=== PATIENT | male | born 1970 | race African-American/Black ===

== ENCOUNTER 2018-05-24 09:34 | Emergency (ER) | payer MEDICARE, MEDICAID ==
--- NOTE | 2018-05-24 09:55 | ER Document Report ---
ED Medical Screen (RME) - General Chief Complaint: Leg Pain Stated Complaint: SKIN ISSUE Time Seen by Provider: 05/24/18 09:46 Mode of Arrival: Ambulatory Information source: Patient, [facility] Records Notes: 47-year-old male with hypertension, diabetes presents with blistering to his lower extremities. I have greeted and performed a rapid initial assessment of this patient. A comprehensive ED assessment and evaluation of the patient, analysis of test results and completion of medical decision making process we will be contacted by additional ED providers. PHYSICAL EXAMINATION: GENERAL: Well-appearing, well-nourished and in no acute distress. HEAD: Atraumatic, normocephalic. LUNGS: No respiratory distress SKIN: Blistering left lower extremity. TRAVEL OUTSIDE OF THE [place] IN LAST 30 DAYS: No - HPI Onset: Other Onset/Duration: Gradual, Persistent Quality of pain: Achy Associated Symptoms: denies: Chills, Fever, Nausea, Vomiting Exacerbated by: Denies Relieved by: Denies Similar symptoms previously: Yes Recently seen / treated by doctor: Yes - Related Data Smoking: Non-smoker Frequency of alcohol use: None Drug Abuse: None Allergies/Adverse Reactions: No Known Allergies Allergy (Verified 05/24/18 09:40) Past Medical History - Past Medical History Cardiac Medical History: Reports: Hx Hypertension Endocrine Medical History: Reports: Hx Diabetes Mellitus Type 1 Physical Exam - Vital signs Vitals: Temp Pulse Resp BP Pulse Ox 98.3 F 86 18 173/106 H 97 05/24/18 09:41 05/24/18 09:41 05/24/18 09:41 05/24/18 09:41 05/24/18 09:41 Course - Vital Signs Vital signs: Temp Pulse Resp BP Pulse Ox 98.3 F 86 18 173/106 H 97 05/24/18 09:41 05/24/18 09:41 05/24/18 09:41 05/24/18 09:41 05/24/18 09:41 Doctor's Discharge - Discharge Referrals: LEX CHEN MD [Primary Care Provider] - Follow up as needed
--- NOTE | 2018-05-24 10:29 | ER Document Report ---
ED General - General Chief Complaint: Leg Pain Stated Complaint: SKIN ISSUE Time Seen by Provider: 05/24/18 09:46 Mode of Arrival: Ambulatory Information source: Patient TRAVEL OUTSIDE OF THE [place] IN LAST 30 DAYS: No - HPI Onset: Other - 2 weeks ago Onset/Duration: Gradual Quality of pain: No pain Severity: None Pain Level: Denies Associated symptoms: None Exacerbated by: Denies Relieved by: Denies Similar symptoms previously: Yes Recently seen / treated by doctor: Yes - Related Data Allergies/Adverse Reactions: No Known Allergies Allergy (Verified 05/24/18 09:40) Past Medical History - General Information source: Patient, [facility] Records - Social History Smoking Status: Never Smoker Frequency of alcohol use: None Drug Abuse: None Family History: Hypertension Patient has suicidal ideation: No Patient has homicidal ideation: No - Past Medical History Cardiac Medical History: Reports: Hx Hypertension Endocrine Medical History: Reports: Hx Diabetes Mellitus Type 1 Renal/ Medical History: Denies: Hx Peritoneal Dialysis Review of Systems - Review of Systems Constitutional: No symptoms reported EENT: No symptoms reported Cardiovascular: No symptoms reported Respiratory: No symptoms reported Gastrointestinal: No symptoms reported Genitourinary: No symptoms reported Male Genitourinary: No symptoms reported Musculoskeletal: No symptoms reported Skin: Other - ulcers Neurological/Psychological: No symptoms reported -: Yes All other systems reviewed and negative Physical Exam - Vital signs Vitals: Temp Pulse Resp BP Pulse Ox 98.3 F 86 18 173/106 H 97 05/24/18 09:41 05/24/18 09:41 05/24/18 09:41 05/24/18 09:41 05/24/18 09:41 - Notes Notes: PHYSICAL EXAMINATION: GENERAL: Well-appearing, well-nourished and in no acute distress. HEAD: Atraumatic, normocephalic. EYES: Pupils equal round and reactive to light, extraocular movements intact, sclera anicteric, conjunctiva are normal. ENT: Nares patent, oropharynx clear without exudates. Moist mucous membranes. NECK: Normal range of motion, supple without lymphadenopathy LUNGS: Breath sounds clear to auscultation bilaterally and equal. No wheezes rales or rhonchi. HEART: Regular rate and rhythm without murmurs ABDOMEN: Obese, Soft, nontender, nondistended abdomen. No guarding, no rebound. No masses appreciated. Musculoskeletal: Normal range of motion, no pitting or edema. No cyanosis. No calf tenderness to palpation. NEUROLOGICAL: Cranial nerves grossly intact. Normal speech, normal gait. Normal sensory, motor exams PSYCH: Normal mood, normal affect. SKIN: Warm, Dry. Ulcerations noted to the LLE and RLE. Ulcerations are clean without signs of infection. No cellulitis. Quarter size bullus to the anterior LLE. Course - Re-evaluation Re-evalutation: 05/24/18 10:33 Patient presents to the emergency department with complaints of bilateral lower extremity ulcerations that have been present for the last couple of months. Patient states that he has followed up with his primary care physician. He states that he was prescribed an ointment to apply to these areas. He states that he has been using it as directed. He states that the ulcerations have been improving. Patient is concerned because there is still present. He feels that he needs an antibiotic. He denies purulent drainage, erythema, warmth. Patient also states that he has a fluid-filled bullae to the left lower extremity. Approximately quarter size. He states that it has been there for over 2 weeks. He states that his primary care physician told him not to rupture the bullae but to let it rupture on its own. Patient denies any calf pain. Patient denies any numbness, tingling, weakness in the lower extremities. Patient is able to ambulate. Patient denies history of DM. Was told by his PCP that he is pre-diabetic. Will obtain blood sugar in the ED. Patient does have a Hx of HTN and is on medication for this. Denies heart history. Denies chest pain or shortness of breath. 05/24/18 11:17 Labs obtained. Blood sugar is within normal limits. Creatinine is within normal limits. I will discharge the patient home on an antibiotic. I instructed the patient to follow-up with his primary care physician this week, to take the medication prescribed as directed, and to return to the emergency department if he begins experiencing any shortness of breath, chest pain, calf pain. Patient is agreeable with plan of care. - Vital Signs Vital signs: Temp Pulse Resp BP Pulse Ox 97.6 F 71 18 166/98 H 97 05/24/18 11:04 05/24/18 11:04 05/24/18 11:04 05/24/18 11:04 05/24/18 11:04 - Laboratory Result Diagrams: 05/24/18 10:02 Laboratory results interpreted by me: 05/24/18 10:02 Carbon Dioxide 31 H Discharge - Discharge Clinical Impression: Ulceration Condition: Good Disposition: HOME, SELF-CARE Instructions: Foot or Leg Ulcer ([facility]) Prescriptions: Doxycycline Hyclate 100 mg PO BID #14 capsule Referrals: LEX CHEN MD [Primary Care Provider] - Follow up as needed
[2018-05-24 10:46] LABS: ANION GAP 9 (5-19); BLOOD UREA NITROGEN 10 mg/dL (7-20); CALCIUM 9.3 mg/dL (8.4-10.2); CARBON DIOXIDE 31 mmol/L (22-30); CHLORIDE 101 mmol/L (98-107); GLUCOSE 105 mg/dL (75-110)
[2018-05-24 11:07] VITALS: BP 166/98
== END 2018-05-24 11:52 | disposition home or self-care (01) ==
LOC: ER 09:34
DX: E10.622 Type 1 diabetes mellitus with other skin ulcer (principal); M79.605 Pain in left leg; M79.604 Pain in right leg; I10 Essential (primary) hypertension
CPT/HCPCS: 36415; 80048; 82962; 99283

== ENCOUNTER 2018-07-23 00:21 | Emergency (ER) | payer MEDICARE, MEDICAID ==
[2018-07-23] MEDS ORDERED: MORPHINE SULFATE IR 15 MG TABLET PO ONE (01:21)
[2018-07-23] MEDS ORDERED: IBUPROFEN 600 MG TABLET PO ONE (01:21)
[2018-07-23] MEDS ORDERED: ACETAMINOPHEN 325 MG TABLET PO ONE (01:21)
--- NOTE | 2018-07-23 01:29 | ER Document Report ---
ED General - General Chief Complaint: Leg Pain Stated Complaint: LEG PAIN Time Seen by Provider: 07/23/18 01:10 Notes: Patient is a 47-year-old male with a past medical history of morbid obesity and hypertension as well as chronic stasis dermatitis who presents with increasing pain to his left lower extremity wound. Patient states for the past 2-3 months he has had a wound over the distal left lower extremity that has been managed by his primary care doctor and wound management. He states for the past 48 hours he has had progressively worsening pain to the area with associated white drainage from the area. He denies associated fever or constitutional symptoms. Touching the area worsens his pain which he does describes a throbbing, aching , constant, severe pain. He has not tried anything for improvement of the pain. He has not seen his general doctor regarding today's concerns. No history of similar symptoms in the past TRAVEL OUTSIDE OF THE [place] IN LAST 30 DAYS: No - Related Data Allergies/Adverse Reactions: No Known Allergies Allergy (Verified 07/23/18 00:24) Past Medical History - General Information source: Patient - Social History Smoking Status: Never Smoker Frequency of alcohol use: None Drug Abuse: None Lives with: Family Family History: Hypertension - Past Medical History Cardiac Medical History: Reports: Hx Hypertension Endocrine Medical History: Reports: Hx Diabetes Mellitus Type 1 Renal/ Medical History: Denies: Hx Peritoneal Dialysis Review of Systems - Review of Systems Notes: Constitutional: Negative for fever. HENT: Negative for sore throat. Eyes: Negative for visual changes. Cardiovascular: Negative for chest pain. Respiratory: Negative for shortness of breath. Gastrointestinal: Negative for abdominal pain, vomiting or diarrhea. Genitourinary: Negative for dysuria. Musculoskeletal: Negative for back pain. Skin: Positive for stasis dermatitis bilaterally, positive for infection of a chronic wound to the left lower extremity Neurological: Negative for headaches, weakness or numbness. 10 point ROS negative except as marked above and in HPI. Physical Exam - Vital signs Vitals: Temp Pulse Resp BP Pulse Ox 98.1 F 95 20 167/103 H 94 07/23/18 00:24 07/23/18 00:24 07/23/18 00:24 07/23/18 00:24 07/23/18 00:24 Interpretation: Hypertensive Notes: PHYSICAL EXAMINATION: GENERAL: Morbidly obese male, appears moderately uncomfortable but in no acute distress HEAD: Atraumatic, normocephalic. EYES: Pupils equal round and reactive to light, extraocular movements intact, sclera anicteric, conjunctiva are normal. ENT: nares patent, oropharynx clear without exudates. Moist mucous membranes. NECK: Normal range of motion, supple without lymphadenopathy LUNGS: Breath sounds clear to auscultation bilaterally and equal. No wheezes rales or rhonchi. HEART: Regular rate and rhythm without murmurs ABDOMEN: Soft, morbidly obese abdomen, nontender, normoactive bowel sounds. No guarding, no rebound. No masses appreciated. EXTREMITIES: Normal range of motion, no pitting or edema. No cyanosis. NEUROLOGICAL: No focal neurological deficits. Moves all extremities spontaneously and on command. PSYCH: Normal mood, normal affect. SKIN: Warm, Dry, normal turgor, there is an approximately 10 x 12 cm area on the distal left lower extremity overlying the lower region of the arguelles that appears to be a chronic wound that has become acutely infected with associated purulent drainage. No significant surrounding erythema. Course - Re-evaluation Re-evalutation: 07/23/18 01:22 Patient presents with approximately a 12 x 10 cm ulcerative wound on the distal lower aspect of the left lower extremity secondary to stasis dermatitis. This does appear to be acutely infected. The patient appears to be in significant discomfort. No fever or constitutional symptoms. Vitals within normal limit. Patient has a long-standing history of chronic wounds to the bilateral lower extremities although has been working with you management regarding this wound on the left lower cavity which she states has acutely become more painful with increasing purulent discharge over the last 48-72 hours. Will obtain basic laboratories, plan for likely outpatient management with oral antibiotics and ongoing follow-up with wound management. I have had a prolonged conversation with the patient about his weight which is currently 209 kg with a BMI of 79. We did review the pathology of stasis dermatitis and the need for emergent weight loss. Patient states that he understands. 07/23/18 02:10 Labs are probably unremarkable. Patient will be started on cephalexin and trimethoprim sulfamethoxazole. The wound has been cleaned and dressed. I have advised the patient that he will need to follow-up with wound management urgently for continued monitoring of this wound. We have reviewed signs and symptoms that would indicate that he is progressing toward sepsis or worsening of the wound. At this time will discharge with return precautions and follow- up recommendations. Verbal discharge instructions given a the bedside and opportunity for questions given. Medication warnings reviewed. Patient is in agreement with this plan and has verbalized understanding of return precautions and the need for primary care follow-up in the next 24-72 hours. - Vital Signs Vital signs: Temp Pulse Resp BP Pulse Ox 98.1 F 95 20 167/103 H 94 07/23/18 00:24 07/23/18 00:24 07/23/18 00:24 07/23/18 00:24 07/23/18 00:24 - Laboratory Result Diagrams: 07/23/18 01:36 07/23/18 01:36 Laboratory results interpreted by me: 07/23/18 07/23/18 01:36 01:36 RDW 14.3 H Carbon Dioxide 33 H Discharge - Discharge Clinical Impression: Wound infection, Morbid obesity Wound of left lower extremity Qualifiers: Encounter type: initial encounter Qualified Code(s): S81.802A - Unspecified open wound, left lower leg, initial encounter Stasis dermatitis Qualifiers: Laterality: bilateral Qualified Code(s): I87.2 - Venous insufficiency (chronic ) (peripheral) Condition: Good Disposition: HOME, SELF-CARE Additional Instructions: You were seen today for an infection of a chronic wound on your left lower extremity. Your labs and vitals are normal today. Please take antibiotics as prescribed. You need to follow-up with wound management on Tuesday for reassessment of the wound. Please return to the emergency department immediately if you develop a fever of greater than 101 F, increasing pain, spreading redness around the area of the wound, body aches, vomiting, or any other symptoms that are concerning to you. For your pain: Take ibuprofen 600 mg and acetaminophen 1000 mg every 6 hours together as needed for pain. You may use tramadol for pain not controlled by the above regimen. As we discussed today, please strongly consider losing weight. Your obesity will result in a shorter life and serious diagnoses including heart attacks, stroke, diabetes, high blood pressure, high cholesterol, kidney failure, and will also result in a much less enjoyable life due to these chronic conditions. Focus on gradual life style changes including removing sugared beverages and processed foods from your diet and at least 30 minutes of moderate activity daily. Try to target 4-5lbs of weight loss per month. Prescriptions: Tramadol HCl [Ultram] 50 mg PO Q6HP PRN #10 tablet PRN Reason: Cephalexin Monohydrate [Keflex 500 mg Capsule] 500 mg PO Q6H 10 Days capsule Sulfamethoxazole/Trimethoprim [Bactrim Ds Tablet] 1 tab PO BID #20 tablet Referrals: SHAWN LANGE, LABORATORY DEVELOPMENT TECHNICIAN [Primary Care Provider] - 07/24/18
[2018-07-23 01:45] LABS: ABSOLUTE BASOPHILS # (AUTO) 0.1 10^3/uL (0.0-0.2); ABSOLUTE EOSINOPHILS # (AUTO) 0.3 10^3/uL (0.0-0.6); ABSOLUTE LYMPHOCYTES (AUTO) 1.3 10^3/uL (0.5-4.7); ABSOLUTE MONOCYTES (AUTO) 0.7 10^3/uL (0.1-1.4); ABSOLUTE NEUT (AUTO) 5.1 10^3/uL (1.7-8.2); EOSINOPHILS % (AUTO) 3.4 % (0-6); HEMATOCRIT 41.2 % (37.9-51.0); HEMOGLOBIN 13.6 g/dL (13.5-17.0); LYMPHOCYTES % (AUTO) 16.9 % (13-45); MEAN CORPUSCULAR HEMOGLOBIN 28.3 pg (27.0-33.4); MEAN CORPUSCULAR HGB CONC 33.1 g/dL (32.0-36.0); MEAN CORPUSCULAR VOLUME 86 fl (80-97); MONOCYTES % (AUTO) 9.5 % (3-13); PLATELET COUNT 340 10^3/uL (150-450); RED BLOOD COUNT 4.82 10^6/uL (4.35-5.55); RED CELL DISTRIBUTION WIDTH 14.3 % (11.5-14.0); SEGMENTED NEUTROPHILS % (AUTO) 69.2 % (42-78); TOTAL CELLS COUNTED % (AUTO) 100 %; WHITE BLOOD COUNT 7.4 10^3/uL (4.0-10.5)
[2018-07-23 02:05] LABS: ANION GAP 10 (5-19); BLOOD UREA NITROGEN 15 mg/dL (7-20); CARBON DIOXIDE 33 mmol/L (22-30); CHLORIDE 100 mmol/L (98-107); GLUCOSE 110 mg/dL (75-110); POTASSIUM 3.7 mmol/L (3.6-5.0); SODIUM 143.3 mmol/L (137-145)
[2018-07-23] MEDS ORDERED: CEPHALEXIN 500 MG CAPSULE PO ONE (02:07)
[2018-07-23] MEDS ORDERED: SULFAMETHOXAZOLE/TRIMETHOPRIM 800-160 MG TABLET PO ONE (02:07)
[2018-07-23 02:37] VITALS: BP 197/106
== END 2018-07-23 02:40 | disposition home or self-care (01) ==
LOC: ER 00:21
DX: I87.2 Venous insufficiency (chronic) (peripheral) (principal); S81.802A Unspecified open wound, left lower leg, initial encounter; M79.605 Pain in left leg; E66.01 Morbid (severe) obesity due to excess calories; X58.XXXA Exposure to other specified factors, initial encounter; I10 Essential (primary) hypertension
CPT/HCPCS: 99283; 36415; 83605; 85025; 80048; A9270 ×5

== ENCOUNTER → 2018-07-31 | Outpatient (CLI) | payer MEDICARE, MEDICAID ==
--- NOTE | 2018-07-31 16:55 | XCELERA REPORT ---
[address] [address] Lower Extremity Venous Evaluation Procedure: A bilateral duplex scan of the lower extremity veins was performed. The evaluation included responses to compression and other maneuvers with patient in the supine and standing positions to assess venous insufficiency. Right Sided Venous Evaluation Deep venous system evaluatiion shows patent veins with no obstruction or significant reflux identified. Sapheno Femoral junction: no reflux. Femoral vein reflux: no reflux. Greater Saphenous vein, Proximal thigh: reflux: no reflux. Greater Saphenous vein, Distal thigh: reflux: no reflux. Greater Saphenous vein, Proximal below knee: reflux: no reflux. No significant Perforators identified. Left Sided Venous Evaluation Deep venous system evaluatiion shows patent veins with no obstruction or significant reflux identified. Sapheno Femoral junction: no reflux. Femoral vein reflux: no reflux. Greater Saphenous vein, Proximal thigh: reflux: no reflux. Greater Saphenous vein, Distal thigh: reflux: no reflux. Greater Saphenous vein, Proximal below knee: reflux: no reflux. No significant Perforators identified. Interpretation Summary No duplex evidence of DVT or obstruction in the bilateral lower extremities. No deep or superficial reflux noted. Name: BRIONNA JIMENEZ Age: 47 yrs Gender: Male : 1970 Patient Status: Outpatient Patient Location: Study Date: 07/31/2018 03:09 PM Reason For Study: ULCER Ordering Physician: SHAWN LANGE Performed By: Terry Nix : SHAWN LANGE > Jose Guadalupe Aguilar
--- NOTE | 2018-07-31 17:01 | XCELERA REPORT ---
[address] [address] Lower Extremity Arterial Evaluation Name: BRIONNA JIMENEZ Age: 47 yrs Gender: Male : 1970 Patient Status: Outpatient Patient Location: Study Date: 07/31/2018 02:26 PM Procedure: A color flow and duplex scan of the lower extremity arteries was performed bilaterally with velocity and waveform anaylsis. Reason For Study: ULCER Ordering Physician: SHAWN LANGE Performed By: Terry Nix Measurements and Calculations Right Left HEALTH LEAD PSV 140.6 152.8 cm/sec Prox PFA PSV 120.8 64.5 cm/sec Prox Pop A PSV 106.2 173.8 cm/sec Dist LYLY PSV 80.5 115.9 cm/sec Mid FINANCE LEAD PSV 132.7 cm/sec Dist FINANCE LEAD PSV 139.7 cm/sec Tej Pedis PSV -67.8 -71.0 cm/sec Right Side Arterial Evaluation Normal velocity and triphasic waveforms noted from the Common Femoral artery to the infrageniculate vessels. Dorsalis Pedis Shows PSV over 2 x Anterior Tibial indicating 50-99% stenosis. 50-99% stenosis at the Dorsal pedal artery. Ankle Brachial index was not done, patient unable to tolerate. Left Side Arterial Evaluation Normal velocity and triphasic waveforms noted from the Common Femoral artery to the infrageniculate vessels. Dorsalis Pedis Shows PSV less than 2 x Anterior Tibial indicating < 50% stenosis. <50 % stenosis at the Dorsal pedal artery. Ankle Brachial index was not done, patient unable to tolerate. Interpretation Summary Stenoses at the Dorsalis Pedis, bilaterally. Mild hemodynamically significant lesions in the bilateral lower extremities, on duplex imaging, at rest. : SHAWN LANGE > Jose Guadalupe Aguilar
== END ==
LOC: SP 15:11
PROVIDERS: ATTEND Nurse Practitioner
DX: L97.222 Non-pressure chronic ulcer of left calf with fat layer exposed (principal)
CPT/HCPCS: 93925; 93970